=== PATIENT | male | born 1955 | race Caucasian/White ===

== ENCOUNTER 2018-03-30 14:46 | Emergency (ER) | payer MEDICARE, OTHER ==
[~2018-03-30] VITALS: Ht 175.3 cm; Wt 83.0 kg
[2018-03-30] MEDS ORDERED: TEMA30CA (15:14)
[2018-03-30] MEDS ORDERED: LOSA25TA21 (15:14)
[2018-03-30] MEDS ORDERED: LEVO125T6 (15:14)
[2018-03-30] MEDS ORDERED: OMEP20CA12 (15:14)
[2018-03-30] MEDS ORDERED: WARF-48 (15:14)
[2018-03-30] MEDS ORDERED: TORS20TA3 (15:14)
[2018-03-30] MEDS ORDERED: ISOS30TA3 (15:14)
[2018-03-30] MEDS ORDERED: TEMA30CA6 (15:14)
[2018-03-30] MEDS ORDERED: SUCR1TAB (15:14)
[2018-03-30] MEDS ORDERED: CARV12.53 (15:14)
[2018-03-30] MEDS ORDERED: ATOR40TA70 (15:14)
[2018-03-30] MEDS ORDERED: METO2.5T (15:14)
[2018-03-30] MEDS ORDERED: NITR1PAT9 (15:14)
[2018-03-30] MEDS ORDERED: LIDOCAINE DRIP 500 ML IV SCH (15:30)
[2018-03-30] MEDS ORDERED: LIDOCAINE BOLUS 100 MG/5 ML (IMS) SYR ONE (15:41)
--- NOTE | 2018-03-30 15:44 | ED Chest Pain ---
General Chief Complaint: Chest Pain Stated Complaint: VSTEMI Nursing Triage Note: pt presents to ed via [facility] ems. pt was in route to [facility] for further evaluation of cardiology and nephrology from [place] ed. while in route pt complained of cp and ems reports possible EKG changes so they deffered to [facility] ED. Nursing Sepsis Screen: No Definite Risk Source: patient Exam Limitations: no limitations History of Present Illness Date Seen by Provider: March 30, 2018 Time Seen by Provider: 15:39 Initial Comments To ER per EMS. He was a transfer from [facility] emergency room to [facility] in [place] for acute renal failure and elevated troponin. He was taken to the emergency room at [place] this morning by his with reports of being unusually sluggish and slow to respond. When they arrived at about the [facility] location the patient complained of chest pain. Paramedics did a telemetry strip and the ambulance. The initial strip upon picking him up from [facility] was a narrow complex rate of 60. When he complained of chest pain it was a wide complex rate of 104. They had concerns of V. tach versus STEMI. They diverted here to the closest hospital before transferring on. Upon arrival here his rate is 65 still wide complex still complaining of chest pain. Labs done this morning at 8 AM showed a troponin of 0.03, pro BNP of 2621, sodium 125, potassium 3.4, BUN of 80 creatinine 4.3 and a GFR of 14. He does have a history of CABG. He does have a pacer/defibrillator. Magnesium 1.6. I spoke with our finish repair worker here Dr. Fox, he recommends initiating lidocaine was 25 mg then drip at 1 mg//min and continue with the transfer. I updated [facility] in [place] and spoke with the ER physician Dr. Perdomo who will see the patient in the emergency room there upon his arrival. I did not repeat any lab work here, labs were just done this morning at [place]. Magnesium was low at 1.6 so I will also order a 1 g of magnesium sulfate to infuse during the transfer through his second IV. Timing/Duration: constant Severity/Quality: moderate Location: central Activities at Onset: none ASA po VARNISH MIXER: Yes (EMS did give 4 baby aspirin) NTG SL VARNISH MIXER: No (Nitroglycerin and morphine were withheld due to the blood pressure of 90-100 systolic.) Allergies and Home Medications Allergies Coded Allergies: Penicillins (Verified Allergy, Unknown, 03/30/18) Sulfa (Sulfonamide Antibiotics) (Verified Allergy, Unknown, 03/30/18) acetaminophen (Verified Allergy, Unknown, 03/30/18) latex (Verified Allergy, Unknown, 03/30/18) oxycodone (Verified Allergy, Unknown, 03/30/18) zolpidem (Verified Allergy, Unknown, 03/30/18) Patient Home Medication List Home Medication List Reviewed: Yes Review of Systems Constitutional: see HPI EENTM: No Symptoms Reported Respiratory: No Symptoms Reported Cardiovascular: No Symptoms Reported Gastrointestinal: No Symptoms Reported Genitourinary: No Symptoms Reported Musculoskeletal: no symptoms reported Skin: no symptoms reported Psychiatric/Neurological: No Symptoms Reported Endocrine: No Symptoms Reported Hematologic/Lymphatic: No Symptoms Reported Past [id number] Hx Patient Social History Alcohol Use: Denies Use Recreational Drug Use: No Smoking Status: Never a Smoker Recent Foreign Travel: No Contact w/Someone Who Travel: No Recent Infectious Disease Expo: No Physical Abuse: No Sexual Abuse: No Mistreated: No Past Medical History CABG, Gallbladder, Orthopedic, Pacemaker Cardiac: Yes (severe mitral regurgitation, congestive heart failure) Angina, Atrial Fibrillation, Coronary Artery Disease, Hypertension, Peripheral Vascular Neurological: Yes Stroke Genitourinary: Yes Renal Failure Gastrointestinal: Yes (hx of ileus) Gastrointestinal Bleed Musculoskeletal: Yes Arthritis Nursing Suicide Risk Score: 0 Integumentary: Yes (skin ca hx) Physical Exam Vital Signs Vital Signs - First Documented 03/30/18 03/30/18 14:56 15:06 Temp 98.2 Pulse 61 Resp 20 B/P (MAP) 106/69 (81) Pulse Ox 99 O2 Delivery Nasal Cannula O2 Flow Rate 2.0 Capillary Refill : Less Than 3 Seconds General Appearance: No Apparent Distress, WD/WN, Chronically ill, Other ( Appears much older than stated age) HEENT: PERRL/EOMI, TMs Normal Neck: Full Range of Motion, Normal Inspection Respiratory: No Accessory Muscle Use, No Respiratory Distress Cardiovascular: Regular Rate, Rhythm, Normal Peripheral Pulses Gastrointestinal: Non Tender, Soft Extremity: Normal Capillary Refill, Normal Inspection Neurologic/Psychiatric: Alert, Oriented x3, No Motor/Sensory Deficits Skin: Normal Color, Warm/Dry Progress/Results/Core Measures Results/Orders My Orders Orders - HAKEEM NOLAN APRN Lidocaine Drip (Xylocaine Drip) (03/30/18 15:30) Lidocaine 2% Bolus Syringe (Xylocaine James (03/30/18 15:41) Magnesium 1 Gm/100 Ml Ivpb (Magnesium Reaves (03/30/18 16:00) Ekg Tracing (03/30/18 15:47) Continuous Ekg Monitoring (03/30/18 15:47) Vital Signs/I&O 03/30/18 03/30/18 14:56 15:06 Temp 98.2 Pulse 61 Resp 20 B/P (MAP) 106/69 (81) Pulse Ox 99 O2 Delivery Nasal Cannula Nasal Cannula O2 Flow Rate 2.0 4.00 Blood Pressure Mean: 81 Departure Communication (Admissions) 1551- AAT THIS TIME heart rate of 60 narrow complex regular oxygen 100% on 2 L respiratory rate of 15 blood pressure 97/64. Impression Primary Impression: Chest pain Additional Impressions: Transient arrhythmia Renal failure Disposition: XFER T-[facility] Condition: Critical Departure-Patient Inst. Referrals: NO,LOCAL PHYSICIAN (PCP/Family) Primary Care Physician HAKEEM NOLAN APRN March 30, 2018 15:44
[2018-03-30] MEDS ORDERED: MAGNESIUM 1 GM/100 ML IVPB 100 ML IV ONE (16:00)
[2018-03-30 16:13] VITALS: BP 104/70
== END 2018-03-30 16:13 | disposition short-term general hospital (02) ==
LOC: ER 14:48
DX: I49.9 Cardiac arrhythmia, unspecified (principal); R07.9 Chest pain, unspecified; N17.9 Acute kidney failure, unspecified; I48.91 Unspecified atrial fibrillation; I25.10 Atherosclerotic heart disease of native coronary artery without angina pectoris; I50.9 Heart failure, unspecified; Z87.19 Personal history of other diseases of the digestive system; Z85.828 Personal history of other malignant neoplasm of skin; Z95.1 Presence of aortocoronary bypass graft; Z95.810 Presence of automatic (implantable) cardiac defibrillator; Z88.0 Allergy status to penicillin; Z88.2 Allergy status to sulfonamides; Z88.6 Allergy status to analgesic agent; Z91.040 Latex allergy status; Z88.5 Allergy status to narcotic agent
CPT/HCPCS: 93005; 96374; 96375

== ENCOUNTER → 2019-01-05 | Outpatient (CLI) | payer MEDICARE, OTHER ==
[~2019-01-05] MED LIST: ATOR40TA70; CARV12.53; ISOS30TA3; LEVO125T6; LOSA25TA41; METO2.5T; NITR1PAT83; OMEP20CA12; SUCR1TAB; TEMA30CA; TEMA30CA6; TORS20TA3; WARF-48
[2019-01-05 12:12] LABS: BASOPHILS % (AUTO) 0 % (0-10); EOSINOPHILS % (AUTO) 4 % (0-10); HEMATOCRIT 25 % (40-54); HEMOGLOBIN 8.1 G/DL (13.3-17.7); LYMPHOCYTES % (AUTO) 15 % (12-44); MEAN CORPUSCULAR HEMOGLOBIN 31 PG (25-34); MEAN CORPUSCULAR HGB CONC 32 G/DL (32-36); MEAN CORPUSCULAR VOLUME 96 FL (80-99); MEAN PLATELET VOLUME 11.8 FL (7.4-10.4); PLATELET COUNT 79 10^3/uL (130-400); RED CELL DISTRIBUTION WIDTH 15.4 % (10.0-14.5); WHITE BLOOD COUNT 3.5 10^3/uL (4.3-11.0)
[2019-01-05 12:13] LABS: EOSINOPHILS # (AUTO) 0.1 10^3/uL (0.0-0.3); LYMPHOCYTES # (AUTO) 0.5 X 10^3 (1.0-4.0); MONOCYTES # (AUTO) 0.4 X 10^3 (0.0-1.0); MONOCYTES % (AUTO) 10 % (0-12); NEUTROPHILS # (AUTO) 2.4 X 10^3 (1.8-7.8); NEUTROPHILS % (AUTO) 71 % (42-75)
== END ==
LOC: LAB FS 11:40
PROVIDERS: ATTEND Internal Medicine Nephrology
DX: E87.6 Hypokalemia (principal); D63.1 Anemia in chronic kidney disease; N18.9 Chronic kidney disease, unspecified
CPT/HCPCS: 36415; 84132; 85025